=== PATIENT | female | born 1930 | race Hispanic/Latino ===

== ENCOUNTER → 2019-08-26 | Outpatient (CLI) | payer MEDICARE | END | disposition home or self-care (01) | LOC: RAH 08:19 | PROVIDERS: ATTEND Internal Medicine Gastroenterology | DX: R10.13 Epigastric pain (principal); R11.2 Nausea with vomiting, unspecified | CPT/HCPCS: 74240; 76700 ==

== ENCOUNTER → 2019-09-19 | Outpatient (CLI) | payer MEDICARE | END | disposition home or self-care (01) | LOC: OIH 14:24 | PROVIDERS: ATTEND Internal Medicine | DX: M47.816 Spondylosis without myelopathy or radiculopathy, lumbar region (principal); M17.11 Unilateral primary osteoarthritis, right knee; M47.814 Spondylosis without myelopathy or radiculopathy, thoracic region; M16.0 Bilateral primary osteoarthritis of hip | CPT/HCPCS: 72070; 72100; 72220; 73502; 73560 ==